=== PATIENT | female | born 1945 | race Hispanic/Latino ===

== ENCOUNTER 2025-01-30 07:51 | Day surgery (SDC) | payer MEDICARE ==
[2025-01-30] VITALS (10 sets, daily range): BP systolic 112–130; BP diastolic 51–72; PULSE 80–96; RESP 14–16; TEMP 97.5–98.2
[~2025-01-30] VITALS: Ht 152.4 cm; Wt 79.4 kg
[~2025-01-30 07:51] MED LIST: 0.9%NACL 1000ML 1,000 ML IV ONE
[2025-01-30] MEDS ORDERED: ESOM40CA66 PO (08:17)
[2025-01-30] MEDS ORDERED: ONDA-104 PO (08:17)
[2025-01-30] MEDS ORDERED: SERT-439 PO (08:17)
[2025-01-30] MEDS ORDERED: LOSA100T59 PO (08:17)
[2025-01-30] MEDS ORDERED: ATOR40TA69 PO (08:17)
[2025-01-30] MEDS ORDERED: EZET10TA80 PO (08:17)
[2025-01-30] MEDS ORDERED: METF-445 PO (08:17)
[2025-01-30] MEDS ORDERED: CEPH500C2 PO (08:17)
[2025-01-30] MEDS ORDERED: CLOP75TA32 PO (08:17)
[2025-01-30] MEDS ORDERED: AMLO-258 PO (08:17)
[2025-01-30] MEDS: 0.9%NACL 1000ML 1,000 ML IV ONE (08:18)
--- NOTE | 2025-01-30 10:38 | NUR ---
BOTH PT AND DAUGHTER GIVEN VERBAL AND WRITTEN DISCHARGE INSTRUCTIONS. IV REMOVED SITE ASYMPTOMATIC. PT TAKEN OUT VIA WHEELCHAIR DAUGHTER DRIVING.
== END 2025-01-30 10:40 | disposition home or self-care (01) ==
LOC: DAH 07:51 → ENDO 07:51
PROVIDERS: ATTEND Internal Medicine Gastroenterology
DX: R10.13 Epigastric pain (principal); K29.50 Unspecified chronic gastritis without bleeding; K21.00 Gastro-esophageal reflux disease with esophagitis, without bleeding; K44.9 Diaphragmatic hernia without obstruction or gangrene; I10 Essential (primary) hypertension; F32.A Depression, unspecified; F41.9 Anxiety disorder, unspecified; E11.9 Type 2 diabetes mellitus without complications; E78.00 Pure hypercholesterolemia, unspecified; M19.90 Unspecified osteoarthritis, unspecified site; Z90.49 Acquired absence of other specified parts of digestive tract; Z98.51 Tubal ligation status; Z79.899 Other long term (current) drug therapy; Z98.890 Other specified postprocedural states
CPT/HCPCS: 82948 ×2; 43239; J7030 ×3; J2704; A4620; A7002; J3490